=== PATIENT | female | born 1965 | race Caucasian/White ===

== ENCOUNTER 2017-12-15 18:13 | Emergency (ER) | payer OTHER ==
[2017-12-15] MEDS ORDERED: 0.9 % SODIUM CHLORIDE 10 ML DISP.SYRIN. IV (18:45)
[2017-12-15] MEDS: diazePAM 5 MG TABLET PO (18:53)
[2017-12-15] MEDS: IV NORMAL SALINE 1000ML BAG 1,000 ML IV (18:55)
[2017-12-15] MEDS: KETOROLAC 30 MG/ML INJ. IV (18:56)
[2017-12-15] MEDS: MORPHINE SULFATE 4 MG/ML DISP.SYRIN. IV/SQ (18:58)
[2017-12-15] MEDS: DEXAMETHASONE SOD PHOS 20 MG/5 ML VIAL. IV (19:03)
[2017-12-15] MEDS: fentaNYL PF VIAL 100 MCG/2 ML VIAL IV (19:46)
== END 2017-12-15 20:01 | disposition home or self-care (01) ==
LOC: ER 18:13
DX: M43.6 Torticollis (principal); I10 Essential (primary) hypertension
CPT/HCPCS: 72125; 96361; 96374; 96375; 99284-25; J1100; J1885; J2270; J3010; J7030

== ENCOUNTER → 2018-02-07 | Outpatient (CLI) | payer OTHER ==
[2018-02-07 15:32] LABS: ADD MAN DIFF? NO
[2018-02-07 15:37] LABS: BASO # 0.1 x10^3/uL (0.0-0.2); BASO % 1 % (0-3); EOS # 0.1 x10^3/uL (0.0-0.7); EOS % 1 % (0-3); HEMATOCRIT 40.2 % (36.0-47.0); HEMOGLOBIN 13.5 g/dL (12.0-15.5); LYMPH # 1.8 x10^3/uL (1.0-4.8); LYMPH % 24 % (24-48); MEAN CORPUSCULAR HEMOGLOBIN 30 pg (25-35); MEAN CORPUSCULAR HGB CONC 34 g/dL (31-37); MEAN CORPUSCULAR VOLUME 89 fL (79-100); MONO # 0.6 x10^3/uL (0.0-1.1); MONO % 8 % (0-9); NEUT % 66 % (31-73); PLATELET COUNT 256 x10^3/uL (140-400); RED BLOOD COUNT 4.52 x10^6/uL (3.50-5.40); RED CELL DISTRIBUTION WIDTH 14.2 % (11.5-14.5); WHITE BLOOD COUNT 7.5 x10^3/uL (4.0-11.0)
[2018-02-07 16:17] LABS: ALBUMIN 3.3 g/dL (3.4-5.0); ALBUMIN/GLOBULIN RATIO 0.9 (1.0-1.7); ALK PHOS 59 U/L (46-116); ALT (SGPT) 37 U/L (14-59); ANION GAP 11 (6-14); AST (SGOT) 17 U/L (15-37); BLOOD UREA NITROGEN 12 mg/dL (7-20); BUN/CREATININE RATIO 10 (6-20); CALCIUM 8.8 mg/dL (8.5-10.1); CARBON DIOXIDE 26 mmol/L (21-32); CHLORIDE 104 mmol/L (98-107); CREATININE 1.2 mg/dL (0.6-1.0); GFR 46.8; GLUCOSE 175 mg/dL (70-99); POTASSIUM 3.6 mmol/L (3.5-5.1); SODIUM 141 mmol/L (136-145); TOTAL BILIRUBIN 0.4 mg/dL (0.2-1.0); TOTAL PROTEIN 6.9 g/dL (6.4-8.2)
[2018-02-08 02:19] LABS: MRSA BY PCR Negative (Negative)
[2018-02-09 00:10] LABS: HEMOGLOBIN A1C 5.2 % (4.8-5.6)
== END | disposition home or self-care (01) ==
LOC: SURGPAT 14:19
DX: Z01.818 Encounter for other preprocedural examination (principal); M50.123 Cervical disc disorder at C6-C7 level with radiculopathy
CPT/HCPCS: 36415; 80053; 83036; 85025; 87641

== ENCOUNTER 2018-02-11 08:38 | Observation (INO) | payer OTHER ==
[~2018-02-11 08:38] MED LIST: LIDOCAINE 1% PF 2 ML VIAL. ID; ONDANSETRON PF 4 MG/2 ML VIAL. IV; PROCHLORPERAZINE 10 MG/2 ML VIAL. IV; fentaNYL PF VIAL 100 MCG/2 ML VIAL IV
[2018-02-11] MEDS ORDERED: PROPOFOL 20 ML IV (08:58)
[2018-02-11] MEDS ORDERED: ROCURONIUM 50 MG/5 ML VIAL. (08:58)
[2018-02-11] MEDS ORDERED: LIDOCAINE 2% PF Vial for OR 5 ML VIAL. (08:58)
[2018-02-11] MEDS ORDERED: fentaNYL PF VIAL 100 MCG/2 ML VIAL ×2 (08:59→14:46)
[2018-02-11] MEDS ORDERED: PROPOFOL 50 ML IV (08:59)
[2018-02-11] MEDS ORDERED: PHENYLEPHRINE 10 MG/ML VIAL. (09:02)
[2018-02-11] MEDS ORDERED: REMIFENTANIL 2 MG VIAL. IV (09:54)
[2018-02-11] MEDS ORDERED: MIDAZOLAM HCL/PF 2 MG/2 ML VIAL. (09:54)
[2018-02-11] MEDS ORDERED: SUCCINYLCHOLINE 200 MG/10 ML VIAL. (09:54)
[2018-02-11] MEDS ORDERED: GLYCOPYRROLATE 1 MG/5 ML VIAL. (12:02)
[2018-02-11] MEDS ORDERED: DEXAMETHASONE SOD PHOS 20 MG/5 ML VIAL. (12:27)
[2018-02-11] MEDS: GELATIN SPONGE SIZE 100. (12:34)
[2018-02-11] MEDS: THROMBIN TOPICAL 20,000 UNIT SPRAY.SYRN KIT TP (12:34)
[2018-02-11] MEDS: BACITRACIN 50,000 UNIT in IV NORMAL SALINE 1000ML BAG 1,000 ML IRR (12:34)
[2018-02-11] MEDS: BUPIVAC MPF-EPI 0.5%-1:200000 30 ML VIAL. INJ (12:34)
[2018-02-11] MEDS ORDERED: PROPOFOL 100 ML IV (13:27)
[2018-02-11] MEDS ORDERED: REMIFENTANIL 1 MG VIAL. IV (14:17)
[2018-02-11] MEDS ORDERED: ONDANSETRON PF 4 MG/2 ML VIAL. (14:58)
[2018-02-11] MEDS ORDERED: DESFLURANE > 120 MINUTES IH (14:59)
[2018-02-11] MEDS ORDERED: MAG HYDROX/ALUMINUM HYD/SIMETH 30 ML ORAL.SUSP PO (15:15)
[2018-02-11] MEDS ORDERED: diphenhydrAMINE HCL 25 MG CAPSULE PO (15:15)
[2018-02-11] MEDS ORDERED: ACETAMINOPHEN 325 MG TABLET. PO (15:15)
[2018-02-11] MEDS ORDERED: diphenhydrAMINE 50 MG/ML VIAL IV (15:15)
[2018-02-11] MEDS ORDERED: oxyCODONE/APAP 5/325 1 TAB TABLET PO (15:15)
[2018-02-11] MEDS ORDERED: 0.9 % SODIUM CHLORIDE 10 ML DISP.SYRIN. IV (15:15)
[2018-02-11] MEDS ORDERED: MAGNESIUM HYDROXIDE 2,400 MG/30 ML ORAL.SUSP. PO (15:15)
[2018-02-11] MEDS ORDERED: NALOXONE 0.4 MG/ML VIAL. IV (15:15)
[2018-02-11] MEDS ORDERED: ONDANSETRON PF 4 MG/2 ML VIAL. IV (15:15)
[2018-02-11] MEDS ORDERED: ZOLPIDEM 5 MG TABLET. PO (15:15)
[2018-02-11] MEDS ORDERED: CALCIUM CARBONATE 500 MG TAB.CHEW PO (15:15)
[2018-02-11] MEDS ORDERED: fentaNYL PF VIAL 100 MCG/2 ML VIAL IV (15:15)
[2018-02-11] MEDS: fentaNYL PF VIAL 100 MCG/2 ML VIAL IV ×6 (15:42→20:19)
[2018-02-11] MEDS: MORPHINE SULFATE 4 MG/ML DISP.SYRIN. IV ×4 (16:11→16:40)
[2018-02-11] MEDS: oxyCODONE/APAP 5/325 1 TAB TABLET PO ×2 (18:20→22:17)
[2018-02-11] MEDS: POTASSIUM CL 20MEQ D5-0.45NACL 1,000 ML IV (20:18)
[2018-02-11] MEDS: IV RINGERS,LACTATED 1000ML 1,000 ML IV (20:18)
[2018-02-11] MEDS: METHOCARBAMOL 750 MG TABLET PO (20:32)
[2018-02-11] MEDS: DOCUSATE SODIUM 100 MG CAPSULE. PO (20:32)
[2018-02-11] MEDS ORDERED: ceFAZolin SODIUM 1 GM in IV DEXTROSE 5% 50 ML IV (22:00)
[2018-02-12] MEDS: BENZOCAINE/MENTHOL LOZENGE. PO (00:24)
[2018-02-12] MEDS: oxyCODONE/APAP 5/325 1 TAB TABLET PO ×3 (02:27→11:09)
[2018-02-12] MEDS: VENLAFAXINE XR 37.5 MG CAP.ER.24H. PO (08:11)
[2018-02-12] MEDS: METHOCARBAMOL 750 MG TABLET PO (08:11)
[2018-02-12] MEDS: DOCUSATE SODIUM 100 MG CAPSULE. PO (08:11)
[2018-02-12] MEDS: PANTOPRAZOLE 40 MG TABLET.DR. PO (11:09)
== END 2018-02-12 12:50 | disposition home or self-care (01) ==
LOC: SURG 08:38 → 4 SOUTHEST 16:02
DX: M48.02 Spinal stenosis, cervical region (principal); M54.12 Radiculopathy, cervical region; M77.9 Enthesopathy, unspecified; Z90.49 Acquired absence of other specified parts of digestive tract; Z82.0 Family history of epilepsy and other diseases of the nervous system
CPT/HCPCS: 20931; 76000; 88304; 88311; 96365; 96375; 96376; 97162-GP; 97530-GP; C1713; G0378; G0379; G8978-CI-GP; G8979-CI-GP; G8980-CI-GP; J0330; J0690; J1100; J2250; J2270; J2405; J2704; J3010; J3490; J7030

== ENCOUNTER 2018-02-13 19:27 | Inpatient (IN) | payer OTHER ==
[2018-02-13] MEDS: IV NORMAL SALINE 500ML BAG 500 ML IV (20:30)
[2018-02-13 20:42] LABS: ADD MAN DIFF? NO
[2018-02-13 20:43] LABS: BASO % 1 % (0-3); EOS # 0.1 x10^3/uL (0.0-0.7); EOS % 1 % (0-3); HEMATOCRIT 40.3 % (36.0-47.0); HEMOGLOBIN 13.5 g/dL (12.0-15.5); LYMPH # 2.1 x10^3/uL (1.0-4.8); LYMPH % 24 % (24-48); MEAN CORPUSCULAR HEMOGLOBIN 30 pg (25-35); MEAN CORPUSCULAR HGB CONC 34 g/dL (31-37); MEAN CORPUSCULAR VOLUME 89 fL (79-100); MONO % 12 % (0-9); NEUT # 5.5 x10^3uL (1.8-7.7); NEUT % 63 % (31-73); PLATELET COUNT 295 x10^3/uL (140-400); RED BLOOD COUNT 4.51 x10^6/uL (3.50-5.40); RED CELL DISTRIBUTION WIDTH 14.4 % (11.5-14.5); WHITE BLOOD COUNT 8.7 x10^3/uL (4.0-11.0)
[2018-02-13 20:44] LABS: BILIRUBIN,URINE NEGATIVE (NEG); CLARITY,URINE CLEAR; COLOR,URINE YELLOW; GLUCOSE,URINE NEGATIVE (NEG); NITRITE,URINE NEGATIVE (NEG); PROTEIN,URINE NEGATIVE (NEG-TRACE); UROBILINOGEN,URINE 0.2 mg/dL (0.2 mg/dL)
[2018-02-13] MEDS: MORPHINE SULFATE 4 MG/ML DISP.SYRIN. IV ×2 (20:51→21:50)
[2018-02-13 20:53] LABS: ANION GAP 8 (6-14); BACTERIA,URINE FEW /HPF (0-FEW); BLOOD UREA NITROGEN 10 mg/dL (7-20); CALCIUM 8.8 mg/dL (8.5-10.1); CARBON DIOXIDE 32 mmol/L (21-32); CHLORIDE 100 mmol/L (98-107); GFR 57.8; GLUCOSE 109 mg/dL (70-99); POTASSIUM 3.8 mmol/L (3.5-5.1); RBC,URINE 0 /HPF (0-2); SODIUM 140 mmol/L (136-145); SQUAMOUS EPITHELIAL CELL,UR FEW /LPF; WBC,URINE OCC /HPF (0-4)
[2018-02-13 20:58] LABS: CREATINE KINASE 156 U/L (26-192)
[2018-02-13] MEDS ORDERED: fentaNYL PF VIAL 100 MCG/2 ML VIAL IV (21:30)
[2018-02-13] MEDS ORDERED: ACETAMINOPHEN 325 MG TABLET. PO (21:45)
[2018-02-13] MEDS: oxyCODONE IR 5 MG TABLET PO (23:45)
[2018-02-14] MEDS: MORPHINE SULFATE 10 MG/ML VIAL. IV ×5 (03:00→21:26)
[2018-02-14] MEDS: oxyCODONE IR 5 MG TABLET PO ×2 (07:38→13:10)
[2018-02-14] MEDS: ONDANSETRON PF 4 MG/2 ML VIAL. IV ×2 (10:48→18:42)
[2018-02-14] MEDS ORDERED: oxyCODONE/APAP 5/325 1 TAB TABLET PO (11:45)
[2018-02-14] MEDS: DOCUSATE SODIUM 100 MG CAPSULE. PO ×2 (12:08→21:26)
[2018-02-14] MEDS: VENLAFAXINE XR 37.5 MG CAP.ER.24H. PO (12:08)
[2018-02-14] MEDS: PANTOPRAZOLE 40 MG TABLET.DR. PO (12:08)
[2018-02-14] MEDS: IV NORMAL SALINE 1000ML BAG 1,000 ML IV (13:09)
[2018-02-14] MEDS: METHOCARBAMOL 750 MG TABLET PO (13:25)
[2018-02-14 14:30] LABS: SEDIMENTATION RATE 48 (0-25)
[2018-02-14] MEDS: tiZANidine 4 MG TABLET. PO (18:00)
[2018-02-14] MEDS ORDERED: ZOLPIDEM 5 MG TABLET. PO (18:00)
[2018-02-14] MEDS ORDERED: ACETAMINOPHEN 500 MG TABLET PO (18:00)
[2018-02-14] MEDS ORDERED: PROCHLORPERAZINE 10 MG/2 ML VIAL. IV (19:30)
[2018-02-15] MEDS: LABETALOL 20 MG/4 ML DISP.SYRIN. IVP (00:04)
[2018-02-15] MEDS: MORPHINE SULFATE 10 MG/ML VIAL. IV ×3 (00:08→08:21)
[2018-02-15 04:37] LABS: ADD MAN DIFF? NO
[2018-02-15 05:04] LABS: ALBUMIN/GLOBULIN RATIO 0.9 (1.0-1.7); ALK PHOS 70 U/L (46-116); ALT (SGPT) 39 U/L (14-59); ANION GAP 7 (6-14); AST (SGOT) 19 U/L (15-37); BLOOD UREA NITROGEN 9 mg/dL (7-20); BUN/CREATININE RATIO 13 (6-20); CALCIUM 8.3 mg/dL (8.5-10.1); CARBON DIOXIDE 30 mmol/L (21-32); CHLORIDE 101 mmol/L (98-107); CREATININE 0.7 mg/dL (0.6-1.0); GFR 87.2; GLUCOSE 120 mg/dL (70-99); POTASSIUM 4.3 mmol/L (3.5-5.1); SODIUM 138 mmol/L (136-145); TOTAL BILIRUBIN 0.5 mg/dL (0.2-1.0); TOTAL PROTEIN 6.5 g/dL (6.4-8.2)
[2018-02-15 05:06] LABS: CREATINE KINASE 67 U/L (26-192)
[2018-02-15] MEDS: PANTOPRAZOLE 40 MG TABLET.DR. PO (06:07)
[2018-02-15] MEDS: ONDANSETRON PF 4 MG/2 ML VIAL. IV (07:56)
[2018-02-15 08:30] LABS: BASO % 1 % (0-3); EOS # 0.1 x10^3/uL (0.0-0.7); EOS % 1 % (0-3); HEMATOCRIT 38.8 % (36.0-47.0); HEMOGLOBIN 13.1 g/dL (12.0-15.5); LYMPH # 1.3 x10^3/uL (1.0-4.8); LYMPH % 13 % (24-48); MEAN CORPUSCULAR HEMOGLOBIN 30 pg (25-35); MEAN CORPUSCULAR HGB CONC 34 g/dL (31-37); MEAN CORPUSCULAR VOLUME 90 fL (79-100); MONO # 0.9 x10^3/uL (0.0-1.1); MONO % 9 % (0-9); NEUT # 7.7 x10^3uL (1.8-7.7); NEUT % 77 % (31-73); PLATELET COUNT 269 x10^3/uL (140-400); RED BLOOD COUNT 4.31 x10^6/uL (3.50-5.40); RED CELL DISTRIBUTION WIDTH 13.9 % (11.5-14.5)
[2018-02-15] MEDS: DOCUSATE SODIUM 100 MG CAPSULE. PO ×2 (09:00→21:05)
[2018-02-15] MEDS: tiZANidine 4 MG TABLET. PO (09:27)
[2018-02-15] MEDS: VENLAFAXINE XR 37.5 MG CAP.ER.24H. PO (09:27)
[2018-02-15] MEDS ORDERED: CONTRAST GIVEN MC (11:15)
[2018-02-15] MEDS: IOHEXOL 300 MG/ML 100ML VIAL. IV (11:42)
[2018-02-15] MEDS: amLODIPine BESYLATE 5 MG TABLET PO (12:55)
[2018-02-15] MEDS: CYCLOBENZAPRINE 10 MG TABLET. PO (12:56)
[2018-02-15] MEDS: oxyCODONE/APAP 5/325 1 TAB TABLET PO (12:56)
[2018-02-15] MEDS: ONDANSETRON ODT 4 MG TAB.RAPDIS. PO ×2 (14:50→21:05)
[2018-02-15] MEDS: ENOXAPARIN 40 MG/0.4 ML SYRINGE. SQ ×2 (14:51→21:05)
[2018-02-15] MEDS: ALBUTEROL SULFATE 2.5 MG/3 ML NEBU. NEB ×2 (15:36→20:09)
[2018-02-15] MEDS: CALCIUM CARBONATE 500 MG TAB.CHEW PO ×2 (16:12→21:05)
[2018-02-16] MEDS: CYCLOBENZAPRINE 10 MG TABLET. PO ×2 (02:12→09:33)
[2018-02-16] MEDS: oxyCODONE/APAP 5/325 1 TAB TABLET PO ×3 (02:13→18:31)
[2018-02-16 03:17] LABS: ALDOLASE 5.1 U/L (3.3-10.3)
[2018-02-16] MEDS: ALBUTEROL SULFATE 2.5 MG/3 ML NEBU. NEB ×4 (07:21→21:26)
[2018-02-16] MEDS: PANTOPRAZOLE 40 MG TABLET.DR. PO (09:22)
[2018-02-16] MEDS: amLODIPine BESYLATE 5 MG TABLET PO (09:24)
[2018-02-16] MEDS: VENLAFAXINE XR 37.5 MG CAP.ER.24H. PO (09:24)
[2018-02-16] MEDS: DOCUSATE SODIUM 100 MG CAPSULE. PO ×2 (09:24→20:34)
[2018-02-16] MEDS: ENOXAPARIN 40 MG/0.4 ML SYRINGE. SQ ×2 (09:26→20:34)
[2018-02-16] MEDS: FLUCONAZOLE 100 MG TABLET. PO (12:52)
[2018-02-17] MEDS: oxyCODONE/APAP 5/325 1 TAB TABLET PO ×2 (01:52→09:24)
[2018-02-17] MEDS: CYCLOBENZAPRINE 10 MG TABLET. PO (01:52)
[2018-02-17 05:21] LABS: HEMOGLOBIN 11.9 g/dL (12.0-15.5); MEAN CORPUSCULAR HEMOGLOBIN 30 pg (25-35); MEAN CORPUSCULAR HGB CONC 34 g/dL (31-37); MEAN CORPUSCULAR VOLUME 89 fL (79-100); PLATELET COUNT 285 x10^3/uL (140-400); RED BLOOD COUNT 3.95 x10^6/uL (3.50-5.40); RED CELL DISTRIBUTION WIDTH 13.8 % (11.5-14.5)
[2018-02-17 05:45] LABS: ALBUMIN 2.6 g/dL (3.4-5.0); ALBUMIN/GLOBULIN RATIO 0.7 (1.0-1.7); ALK PHOS 67 U/L (46-116); ALT (SGPT) 25 U/L (14-59); ANION GAP 5 (6-14); AST (SGOT) 12 U/L (15-37); BLOOD UREA NITROGEN 9 mg/dL (7-20); BUN/CREATININE RATIO 11 (6-20); CALCIUM 8.5 mg/dL (8.5-10.1); CARBON DIOXIDE 31 mmol/L (21-32); CHLORIDE 106 mmol/L (98-107); CREATININE 0.8 mg/dL (0.6-1.0); GFR 74.7; GLUCOSE 105 mg/dL (70-99); POTASSIUM 3.6 mmol/L (3.5-5.1); SODIUM 142 mmol/L (136-145); TOTAL BILIRUBIN 0.3 mg/dL (0.2-1.0); TOTAL PROTEIN 6.4 g/dL (6.4-8.2)
[2018-02-17] MEDS: PANTOPRAZOLE 40 MG TABLET.DR. PO (06:33)
[2018-02-17 06:36] LABS: SEDIMENTATION RATE 45 (0-25)
[2018-02-17] MEDS: ALBUTEROL SULFATE 2.5 MG/3 ML NEBU. NEB ×2 (06:59→11:00)
[2018-02-17] MEDS: ENOXAPARIN 40 MG/0.4 ML SYRINGE. SQ (09:22)
[2018-02-17] MEDS: DOCUSATE SODIUM 100 MG CAPSULE. PO (09:22)
[2018-02-17] MEDS: VENLAFAXINE XR 37.5 MG CAP.ER.24H. PO (09:23)
[2018-02-17] MEDS: amLODIPine BESYLATE 5 MG TABLET PO (09:23)
[2018-02-17] MEDS: FLUCONAZOLE 100 MG TABLET. PO (09:24)
== END 2018-02-17 13:15 | disposition home or self-care (01) | DRG 948 ==
LOC: ER 19:27 → 4 NORTH 21:30
DX: G89.18 Other acute postprocedural pain (principal); E53.8 Deficiency of other specified B group vitamins; M79.1 Myalgia; K21.9 Gastro-esophageal reflux disease without esophagitis; E66.9 Obesity, unspecified; E78.00 Pure hypercholesterolemia, unspecified; I10 Essential (primary) hypertension; Z90.710 Acquired absence of both cervix and uterus; Z98.1 Arthrodesis status; G47.33 Obstructive sleep apnea (adult) (pediatric); E78.5 Hyperlipidemia, unspecified; Z90.49 Acquired absence of other specified parts of digestive tract; T48.1X5A Adverse effect of skeletal muscle relaxants [neuromuscular blocking agents], initial encounter; Y92.9 Unspecified place or not applicable; R09.02 Hypoxemia
CPT/HCPCS: 36415; 70450; 71045; 71275; 80048; 80053; 81001; 82085; 82550; 85025; 85027; 85651; 94640; 94660; 94760; 96361; 96374; 96376; 97116-GP; 99285; 99285-25; J1650; J2270; J2405; J3490; J7030; J7040; J7613; Q0162; Q9967